=== PATIENT | male | born 1985 | race Caucasian/White ===

== ENCOUNTER → 2017-04-08 | Outpatient (CLI) | payer OTHER | LOC: SLEEP 21:30 | DX: G47.33 Obstructive sleep apnea (adult) (pediatric) (principal) | CPT/HCPCS: 95810 ==

== ENCOUNTER 2020-12-29 22:45 | Emergency (ER) | payer MEDICARE, OTHER ==
[~2020-12-29 22:45] MED LIST: ABILIFY 5 MG TAB5 MG PO; ABILIFY5 MG PO; AMOX TR-K CLV1 EAC1 PO; CIPRO500 MG PO; CORTISPORIN-TC10 M1 OT; CYMBALTA 30 MG30 MG PO; GLUCOPHAGE 500500 MG PO; GLUCOTROL 10 MG10 MG PO; HUMALOG100 UNIT/1 SC; LEVAQUIN750 MG PO; LIPITOR80 MG PO; LISINOPRIL10 MG PO; MUCINEX DM ER1 EAC1 PO; PREDNISONE20 MG PO; PROAIR DIGIHAL90 MCG IH; ROBITUSSIN AC480 ML PO; TESSALON PERLE100 MG PO
== END 2020-12-29 23:30 | disposition left against medical advice (07) ==
LOC: ER1 22:45
DX: U07.1 COVID-19 (principal); Z53.21 Procedure and treatment not carried out due to patient leaving prior to being seen by health care provider

== ENCOUNTER 2021-01-08 06:00 | Emergency (ER) | payer MEDICARE, OTHER ==
[2021-01-08 07:30] LABS: RED BLOOD COUNT 4.91 M/UL (4.20-5.50); WHITE BLOOD COUNT 8.1 K/UL (4.5-11.0)
[2021-01-08 07:53] LABS: BUN/CREATININE RATIO 16 (0-10)
[2021-01-08] MEDS ORDERED: PROTONIX 40 MG40 M1 PO (13:23)
== END 2021-01-08 14:07 | disposition home or self-care (01) ==
LOC: ER1 06:00
PROVIDERS: Family Medicine
DX: R07.89 Other chest pain (principal); I10 Essential (primary) hypertension; E11.9 Type 2 diabetes mellitus without complications; Z79.84 Long term (current) use of oral hypoglycemic drugs
CPT/HCPCS: 36415; 71045; 80053; 82550; 82553; 83874; 84484; 85025; 93005; 99285

== ENCOUNTER → 2021-03-15 | Outpatient (CLI) | payer MEDICARE, OTHER ==
[~2021-03-15] MED LIST changes: +PROTONIX 40 MG40 M1 PO
== END ==
LOC: KOH-I 14:42
DX: R10.84 Generalized abdominal pain (principal); R14.3 Flatulence
CPT/HCPCS: 74022